=== PATIENT | male | born 2000 | race Caucasian/White ===

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

== ENCOUNTER 2021-09-18 18:45 | Emergency (ER) | payer OTHER ==
[~2021-09-18] VITALS: Ht 175.3 cm; Wt 79.2 kg
[~2021-09-18 18:45] MED LIST: NAPR-837 PO
[2021-09-18] MEDS ORDERED: NAPR-837 PO (19:50)
[2021-09-18 19:59] VITALS: BP 130/66
== END 2021-09-18 20:21 | disposition home or self-care (01) ==
LOC: M ED 18:45
DX: M25.511 Pain in right shoulder (principal); X50.0XXA Overexertion from strenuous movement or load, initial encounter

== ENCOUNTER 2021-10-18 16:21 | Emergency (ER) | payer OTHER ==
[~2021-10-18] VITALS: Ht 175.3 cm; Wt 81.6 kg
[2021-10-18 19:57] LABS: BASO % 0.3 % (0.0-1.0); EOS # 0.4 10^3/uL (0.0-0.5); HEMATOCRIT 42.5 % (42.0-52.0); HEMOGLOBIN 14.5 g/dl (13.5-17.5); LYMPH # 2.8 10^3/uL (1.5-5.0); LYMPH % 42.1 % (24.0-44.0); MEAN CORPUSCULAR HEMOGLOBIN 30.1 pg (27.0-33.0); MEAN CORPUSCULAR HGB CONC 34.1 g/dl (32.0-36.5); MEAN CORPUSCULAR VOLUME 88.4 fl (80.0-96.0); MONO # 0.7 10^3/uL (0.0-0.8); MONO % 10.9 % (2.0-8.0); NEUTROPHILS # 2.7 10^3/uL (1.5-8.5); NEUTROPHILS % 40.4 % (36.0-66.0); PLATELET COUNT, AUTOMATED 249 10^3/uL (150-450); RED BLOOD COUNT 4.81 10^6/uL (4.30-6.10); WHITE BLOOD COUNT 6.7 10^3/uL (4.0-10.0)
[2021-10-18 20:20] LABS: CK-MB VALUE MASS 1.9 NG/ML (<3.6); MB/CK RELATIVE INDEX 0.75 (< OR =4)
[2021-10-18 20:28] LABS: BLOOD UREA NITROGEN 15 MG/DL (7-18); CALCIUM LEVEL 9.3 MG/DL (8.5-10.1); CARBON DIOXIDE LEVEL 31 MEQ/L (21-32); CHLORIDE LEVEL 104 MEQ/L (98-107); CREATININE FOR GFR 0.99 MG/DL (0.70-1.30); GLUCOSE, FASTING 84 MG/DL (70-100); MAGNESIUM LEVEL 2.1 MG/DL (1.8-2.4); NT-PRO BNP 21 PG/ML (<125); POTASSIUM SERUM 3.9 MEQ/L (3.5-5.1); SODIUM LEVEL 139 MEQ/L (136-145)
[2021-10-18 21:26] LABS: AMPHETAMINES LEVEL URINE NEGATIVE (NEGATIVE); BARBITURATES URINE NEGATIVE (NEGATIVE); BENZODIAZEPINES URINE NEGATIVE (NEGATIVE); CANNABINOIDS URINE NEGATIVE (NEGATIVE); COCAINE METABOLITE URINE NEGATIVE (NEGATIVE); METHADONE URINE NEGATIVE (NEGATIVE); OPIATES URINE NEGATIVE (NEGATIVE); PHENCYCLIDINE URINE NEGATIVE (NEGATIVE)
[2021-10-18 21:30] VITALS: BP 160/77
[2021-10-19] MEDS ORDERED: NAPR-837 PO (13:31)
== END 2021-10-18 21:47 | disposition home or self-care (01) ==
LOC: M ED 16:21
DX: M94.0 Chondrocostal junction syndrome [Tietze] (principal); R06.02 Shortness of breath; F17.210 Nicotine dependence, cigarettes, uncomplicated

== ENCOUNTER 2021-11-07 10:39 | Emergency (ER) | payer OTHER ==
[~2021-11-07] VITALS: Ht 175.3 cm; Wt 83.6 kg
[2021-11-07] MEDS ORDERED: CETI-24 (11:16)
[2021-11-07] MEDS ORDERED: PROAAER10 (11:16)
[2021-11-07 12:16] LABS: VENOUS HCO3 25.9 MEQ/L (23.0-27.0); VENOUS O2 SATURATION 70.5 % (60.0-80.0); VENOUS PARTIAL PRESSURE CO2 46.7 mmHg (38.0-50.0); VENOUS PARTIAL PRESSURE O2 36.4 mmHg (30.0-50.0); VENOUS PH 7.362 UNITS (7.330-7.430); VENOUS STANDARD HCO3 23.8 MEQ/L; VENOUS TOTAL CO2 27.3 MEQ/L (24.0-28.0)
[2021-11-07 12:25] LABS: BASO % 0.3 % (0.0-1.0); EOS # 0.4 10^3/uL (0.0-0.5); EOS % 5.8 % (0.0-3.0); HEMATOCRIT 41.2 % (42.0-52.0); HEMOGLOBIN 13.9 g/dl (13.5-17.5); LYMPH % 29.2 % (24.0-44.0); MEAN CORPUSCULAR HEMOGLOBIN 29.6 pg (27.0-33.0); MEAN CORPUSCULAR HGB CONC 33.7 g/dl (32.0-36.5); MEAN CORPUSCULAR VOLUME 87.8 fl (80.0-96.0); MONO # 0.7 10^3/uL (0.0-0.8); MONO % 10.9 % (2.0-8.0); NEUTROPHILS # 3.6 10^3/uL (1.5-8.5); NEUTROPHILS % 53.5 % (36.0-66.0); PLATELET COUNT, AUTOMATED 230 10^3/uL (150-450); RED BLOOD COUNT 4.69 10^6/uL (4.30-6.10); WHITE BLOOD COUNT 6.7 10^3/uL (4.0-10.0)
[2021-11-07 12:54] LABS: ACETAMINOPHEN LEVEL < 2.0 UG/ML (10.0-30.0); ALBUMIN 4.3 GM/DL (3.2-5.2); ALT/SGPT 33 U/L (12-78); BILIRUBIN,DIRECT 0.2 MG/DL (0.0-0.2); BILIRUBIN,TOTAL 0.4 MG/DL (0.2-1.0); BLOOD UREA NITROGEN 11 MG/DL (7-18); CALCIUM LEVEL 9.2 MG/DL (8.5-10.1); CARBON DIOXIDE LEVEL 30 MEQ/L (21-32); CHLORIDE LEVEL 105 MEQ/L (98-107); CREATININE FOR GFR 1.04 MG/DL (0.70-1.30); ETHYL ALCOHOL (ETHANOL) 0.003 % (0.000-0.010); GLUCOSE, FASTING 111 MG/DL (70-100); POTASSIUM SERUM 3.9 MEQ/L (3.5-5.1); SALICYLATE LEVEL < 1.7 MG/DL (5.0-30.0); SODIUM LEVEL 140 MEQ/L (136-145); TOTAL PROTEIN 7.5 GM/DL (6.4-8.2)
[2021-11-07 12:59] LABS: AMPHETAMINES LEVEL URINE NEGATIVE (NEGATIVE); BARBITURATES URINE NEGATIVE (NEGATIVE); BENZODIAZEPINES URINE NEGATIVE (NEGATIVE); CANNABINOIDS URINE NEGATIVE (NEGATIVE); COCAINE METABOLITE URINE NEGATIVE (NEGATIVE); METHADONE URINE NEGATIVE (NEGATIVE); OPIATES URINE NEGATIVE (NEGATIVE); PHENCYCLIDINE URINE NEGATIVE (NEGATIVE)
[2021-11-07 13:30] LABS: OSMOLALITY SERUM 289 MOSM/KG (275-295)
[2021-11-07 18:43] LABS: BLOOD UREA NITROGEN 10 MG/DL (7-18); CALCIUM LEVEL 9.1 MG/DL (8.5-10.1); CARBON DIOXIDE LEVEL 28 MEQ/L (21-32); CHLORIDE LEVEL 107 MEQ/L (98-107); GLUCOSE, FASTING 91 MG/DL (70-100); POTASSIUM SERUM 3.8 MEQ/L (3.5-5.1); SODIUM LEVEL 140 MEQ/L (136-145)
[2021-11-07 18:56] LABS: OSMOLALITY SERUM 289 MOSM/KG (275-295)
[2021-11-07 22:45] LABS: RSV AMPLIFICATION NEGATIVE (NEGATIVE)
[2021-11-07 23:34] VITALS: BP 128/96
== END 2021-11-07 23:52 | disposition home or self-care (01) ==
LOC: M ED 10:39
DX: T52.3X1A Toxic effect of glycols, accidental (unintentional), initial encounter (principal); Y92.9 Unspecified place or not applicable; Y93.9 Activity, unspecified; Y99.9 Unspecified external cause status; F32.A Depression, unspecified; Z79.51 Long term (current) use of inhaled steroids; Z79.899 Other long term (current) drug therapy

== ENCOUNTER 2022-01-09 21:09 | Emergency (ER) | payer OTHER ==
[~2022-01-09] VITALS: Ht 175.3 cm; Wt 84.1 kg
[2022-01-09 21:09] VITALS: BP 151/95
[~2022-01-09 21:09] MED LIST changes: +CETI-24; +PROAAER10
[2022-01-09] MEDS ORDERED: PROPARACAINE 0.5% OPHTH SOL 15ML OU ONE (21:30)
[2022-01-09] MEDS ORDERED: FLUORESCEIN OPHTH 1 MG STRIP OD ONE (21:30)
[2022-01-09] MEDS ORDERED: KETOROLAC 30 MG/ML 1ML VIAL IM ONE (22:05)
== END 2022-01-09 22:20 | disposition home or self-care (01) ==
LOC: M ED 21:09
DX: G89.29 Other chronic pain (principal); M25.511 Pain in right shoulder
CPT/HCPCS: 96372; 99283; J1885